=== PATIENT | male | born 1970 | race Caucasian/White ===

== ENCOUNTER 2022-08-28 11:06 | Outpatient (CLI) | payer SELFPAY | END 2022-08-28 23:59 | disposition critical access hospital (66) | LOC: EMS 11:06 | DX: M54.50 Low back pain, unspecified (principal); W11.XXXA Fall on and from ladder, initial encounter; Y92.009 Unspecified place in unspecified non-institutional (private) residence as the place of occurrence of the external cause | CPT/HCPCS: A0425; A0429 ==

== ENCOUNTER 2022-08-28 11:30 | Emergency (ER) | payer SELFPAY ==
[2022-08-28 11:46] VITALS: BP 117/81
[2022-08-28] MEDS ORDERED: ACETAMINOPHEN 500 MG TABLET PO STA (12:01)
--- NOTE | 2022-08-28 12:02 | ED Physician Documentation ---
PD HPI MAJOR TRAUMA - Stated complaint Stated Complaint: FALL FROM LADDER - Chief complaint Chief Complaint: Trauma Ext - History obtained from History obtained from: Patient - Additional information Additional information: Otherwise healthy 52-year-old gentleman was at work today and fell about 3 to 5 feet off a ladder landing on his low back. No other injuries. He is able to walk and bear weight. No head injury. No neck injury. Pain is moderate. It is in the low lumbar spine. It is worse if he moves or twists. PD PAST MEDICAL HISTORY - Allergies Allergies/Adverse Reactions: Allergies Allergy/AdvReac Type Severity Reaction Status Date / Time No Known Drug Allergies Allergy Verified 08/28/22 11:36 PD ED PE NORMAL - Vitals Vital signs reviewed: Yes - General General: Alert and oriented X 3, No acute distress - HEENT HEENT: PERRL, EOMI - Neck Neck: Supple, no meningeal sign, No bony TTP, C-Spine cleared by NEXUS criteria (In c-collar removed during initial evaluation at approximately 12 PM) - Cardiac Cardiac: RRR, No murmur - Respiratory Respiratory: No respiratory distress, Clear bilaterally - Abdomen Abdomen: Non tender - Back Back: Other (Mild tenderness of the low lumbar spine, no thoracic spine tenderness) - Derm Derm: Normal color, Warm and dry - Extremities Extremities: No deformity, No tenderness to palpate, Normal ROM s pain, No edema, No calf tenderness / cord, Other (The patient has equal and normal Achilles and patellar reflexes bilaterally. Normal sensation in all areas of the legs. Patient denies saddle anesthesia. Normal strength in flexion- extension at the ankles, knees, and flexion of the hips.) - Neuro Neuro: Alert and oriented X 3 Eye Opening: Spontaneous Motor: Obeys Commands Verbal: Oriented GCS Score: 15 Results - Vitals Vitals: Vital Signs - 24 hr 08/28/22 11:33 Temperature 36.7 C Heart Rate 84 Respiratory 16 Rate Blood Pressure 117/81 H O2 Saturation 95 Oxygen O2 Source Room air - Rads (name of study) 2 view x-ray of the lumbar spine demonstrates mild disc loss at L3-4 and L4-5 and facet arthrosis at L5-S1 Relevant Findings:: Final report received, EMP independent interpretation of test Departure - Departure Disposition: 01 Home, Self Care Clinical Impression: Fall from ladder Qualifiers: Encounter type: initial encounter Qualified Code(s): W11.XXXA - Fall on and from ladder, initial encounter Contusion of lower back Qualifiers: Encounter type: initial encounter Qualified Code(s): S30.0XXA - Contusion of lower back and pelvis, initial encounter Condition: Good Record reviewed to determine appropriate education?: Yes Instructions: ED Low Back Pain Injury Comments: The x-ray showed some degenerative changes but nothing related to the fall today, specifically: 2 view x-ray of the lumbar spine demonstrates mild disc loss at L3-4 and L4-5 and facet arthrosis at L5-S1 Tylenol and/or ibuprofen as needed for pain. Call your doctor to arrange a follow-up appointment, make the next available appointment. In the interim, return anytime if worse or if new symptoms develop.
--- NOTE | 2022-08-28 12:27 | XRAY Report ---
PROCEDURE: Lumbar Spine 2 View INDICATIONS: back inj TECHNIQUE: 2 views of the lumbar spine were acquired. COMPARISON: None. FINDINGS: Bones: 5 [id number] vertebrae are present. There is normal bony alignment. No vertebral body compression fractures. No suspicious bony lesions. Mild disc height loss at L3-4 and L4-5. Mild fac et arthrosis at L5-S1. Soft tissues: Overlying bowel gas pattern is normal. No suspicious soft tissue calcifications. IMPRESSION: 1.Mild disc loss at L3-4 and L4-5. 2.Mild facet arthrosis at L5/S1. Reviewed by: Franklin Trujillo on 08/28/2022 12:26 PM PDT Approved by: Franklin Trujillo on 08/28/2022 12:26 PM PDT Station ID: [id number]
== END 2022-08-28 12:49 | disposition home or self-care (01) ==
LOC: EDUNIT# → ED 11:30
DX: S30.0XXA Contusion of lower back and pelvis, initial encounter (principal); W11.XXXA Fall on and from ladder, initial encounter; Y92.89 Other specified places as the place of occurrence of the external cause; Y99.0 Civilian activity done for income or pay
CPT/HCPCS: 72100; 99283; A9270